=== PATIENT | male | born 1945 | race Caucasian/White ===

== ENCOUNTER 2018-01-04 00:02 | Emergency (ER) | payer SELFPAY ==
[~2018-01-04] VITALS: Ht 175.3 cm; Wt 54.0 kg
[2018-01-04 03:30] LABS: BASOPHILS % 1.2 % (0.0-2.0); EOSINOPHILS % 4.7 % (0.0-5.0); HEMATOCRIT. 30.1 % (42.0-52.0); HEMOGLOBIN. 10.3 g/dL (14.0-18.0); LYMPHOCYTES % 28.6 % (20.0-50.0); MEAN CORPUSCULAR HEMOGLOBIN 28.9 pg (28.0-32.0); MEAN CORPUSCULAR VOLUME 84.3 fL (80.0-94.0); MEAN PLATELET VOLUME 7.9 fl (7.4-10.4); MONOCYTES % 8.7 % (2.0-8.0); NEUTROPHILS % 56.8 % (40.0-76.0); PLATELET 256 x1000/uL (130-400); RED BLOOD CELL COUNT 3.57 mill/uL (4.7-6.1); RED CELL DISTRIBUTION WIDTH 16.1 % (11.6-14.6)
[2018-01-04 03:34] LABS: PROTHROMBIN TIME 10.5 sec (9.1-11.1)
[2018-01-04 03:40] LABS: CHLORIDE 107 mEq/L (98-107)
[2018-01-04 06:15] VITALS: BP 177/100
== END 2018-01-04 06:15 | disposition home or self-care (01) ==
LOC: ER 00:02
DX: K46.9 Unspecified abdominal hernia without obstruction or gangrene (principal); E11.9 Type 2 diabetes mellitus without complications; I10 Essential (primary) hypertension; F17.200 Nicotine dependence, unspecified, uncomplicated
CPT/HCPCS: 36415; 74176; 80053; 83690; 85025; 85610; 99285; Z7610

== ENCOUNTER 2018-01-05 20:05 | Emergency (ER) | payer SELFPAY ==
[~2018-01-05] VITALS: Ht 185.4 cm; Wt 58.4 kg
[2018-01-05] MEDS ORDERED: AMLODIPINE 5MG TABLET PO ONE (23:15)
[2018-01-05 23:46] VITALS: BP 185/94
== END 2018-01-06 00:01 | disposition home or self-care (01) ==
LOC: ER 20:05
DX: I10 Essential (primary) hypertension (principal); K42.9 Umbilical hernia without obstruction or gangrene; F17.200 Nicotine dependence, unspecified, uncomplicated
CPT/HCPCS: 99283